=== PATIENT | male | born 1995 | race Caucasian/White ===

== ENCOUNTER 2018-11-16 06:36 | Emergency (ER) | payer SELFPAY ==
[~2018-11-16] VITALS: Ht 172.7 cm; Wt 81.0 kg
[2018-11-16] MEDS ORDERED: LORAZEPAM 2MG/ML CPJ IM STA (06:45)
[2018-11-16] MEDS ORDERED: HALOPERIDOL LACTATE 5MG/ML VIAL IM STA (06:45)
[2018-11-16 07:19] LABS: BASOPHILS % 0.3 % (0.0-2.0); HEMATOCRIT. 48.4 % (42.0-52.0); HEMOGLOBIN. 16.6 g/dL (14.0-18.0); LYMPHOCYTES % 7.6 % (20.0-50.0); MEAN CORPUSCULAR HEMOGLOBIN 29.5 pg (28.0-32.0); MEAN CORPUSCULAR VOLUME 85.8 fL (80.0-94.0); MEAN PLATELET VOLUME 7.6 fl (7.4-10.4); MONOCYTES % 7.5 % (2.0-8.0); NEUTROPHILS % 84.6 % (40.0-76.0); PLATELET 403 x1000/uL (130-400); RED BLOOD CELL COUNT 5.64 mill/uL (4.7-6.1); RED CELL DISTRIBUTION WIDTH 12.7 % (11.6-14.6)
[2018-11-16 07:24] LABS: CHLORIDE 101 mEq/L (98-107)
[2018-11-16 07:28] LABS: ETHANOL BLOOD < 10 mg/dL
[2018-11-16 08:50] LABS: *AMPHETAMINES SCREEN URINE NEGATIVE (NEGATIVE); *BARBITURATES SCREEN URINE NEGATIVE (NEGATIVE)
[2018-11-16 08:51] LABS: *BENZODIAZEPINES SCREEN URINE PRESUMTIVE POSITIVE (NEGATIVE); *COCAINE SCREEN URINE PRESUMTIVE POSITIVE (NEGATIVE); CANNABINOID URINE SCREEN PRESUMTIVE POSITIVE (NEGATIVE); METHADONE URINE SCREEN NEGATIVE (NEGATIVE); OPIATES URINE SCREEN NEGATIVE (NEGATIVE); PHENCYCLIDINE URINE SCREEN NEGATIVE (NEGATIVE)
[2018-11-16 15:33] VITALS: BP 121/78
== END 2018-11-16 16:40 | disposition home or self-care (01) ==
LOC: ER 06:36 → EDBD 06:36 → ER 16:40
DX: F19.10 Other psychoactive substance abuse, uncomplicated (principal); D72.829 Elevated white blood cell count, unspecified; F14.10 Cocaine abuse, uncomplicated; R40.4 Transient alteration of awareness; R00.0 Tachycardia, unspecified; F12.10 Cannabis abuse, uncomplicated
CPT/HCPCS: 36415; 70450; 80053; 80305; 85025; 96372; 99284; G0482; J1630; J2060; C1893; J7050

== ENCOUNTER 2022-05-30 01:20 | Emergency (ER) | payer MEDICAID ==
[~2022-05-30] VITALS: Ht 182.9 cm; Wt 102.0 kg
[2022-05-30] MEDS ORDERED: PROCHLORPERAZINE MALEATE 10MG TABLET PO ONE (02:15)
[2022-05-30] MEDS ORDERED: KETOROLAC 60MG/2ML VIAL IM ONE (02:15)
[2022-05-30] MEDS ORDERED: DIPHENHYDRAMINE 25MG CAPSULE PO ONE (02:15)
[2022-05-30] MEDS ORDERED: AMOX-494 MT (04:31)
[2022-05-30 04:44] VITALS: BP 131/95
== END 2022-05-30 04:45 | disposition home or self-care (01) ==
LOC: ER 01:34
DX: J32.0 Chronic maxillary sinusitis (principal); J32.2 Chronic ethmoidal sinusitis; J32.1 Chronic frontal sinusitis; R03.0 Elevated blood-pressure reading, without diagnosis of hypertension; F14.90 Cocaine use, unspecified, uncomplicated; F15.90 Other stimulant use, unspecified, uncomplicated; F16.90 Hallucinogen use, unspecified, uncomplicated
CPT/HCPCS: 70450; 96372; 99284; J1885; Q0163; Q0164

== ENCOUNTER 2023-10-27 18:02 | Emergency (ER) | payer MEDICAID ==
[~2023-10-27] VITALS: Ht 177.8 cm; Wt 90.0 kg
[~2023-10-27 18:02] MED LIST: AMOX-494 MT
[2023-10-27 18:14] VITALS: O2SAT 96
[2023-10-27] MEDS ORDERED: IBUPROFEN 600MG TABLET PO ONE (20:45)
[2023-10-27 23:41] VITALS: BP 137/84; PULSE 60; RESP 16; TEMP 98
== END 2023-10-27 23:48 | disposition home or self-care (01) ==
LOC: ER 18:02
DX: R45.1 Restlessness and agitation (principal)
CPT/HCPCS: 73060; 73090; 73100; 99284